=== PATIENT | female | born 1970 | race Caucasian/White ===

== ENCOUNTER 2017-01-19 03:55 | Emergency (ER) | payer OTHER ==
[2017-01-19 04:24] VITALS: BP 124/99; PULSE 81; TEMP 98.2; BMI 30.9
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
[2017-01-19] MEDS ORDERED: VANCOMYCIN 1,000 MG in DEXTROSE 5%-WATER - 250 ML IVPB ONE (05:29)
[2017-01-19] MEDS ORDERED: CLINDAMYCIN 600MG PREMIX IVPB 50 ML IVPB ONE (05:30)
== END 2017-01-19 05:58 | disposition home or self-care (01) ==
LOC: JER 03:55
DX: S60.472A Other superficial bite of right middle finger, initial encounter (principal); Y04.1XXA Assault by human bite, initial encounter; Y93.89 Activity, other specified; Y92.89 Other specified places as the place of occurrence of the external cause; Y07.499 Other family member, perpetrator of maltreatment and neglect
CPT/HCPCS: 99281-25

== ENCOUNTER 2018-08-14 01:08 | Emergency (ER) | payer OTHER ==
[2018-08-14 01:12] VITALS: BMI 28.5
[2018-08-14] MEDS ORDERED: SODIUM CHLORIDE 1,000 ML IV STA (01:43)
[2018-08-14] MEDS ORDERED: morphine CARPU-JECT 4 MG/1 ML DISP.SYRIN IVPUSH ONE (01:43)
[2018-08-14] MEDS ORDERED: ONDANSETRON 4 MG/2 ML VIAL IVPUSH ONE (01:43)
[2018-08-14] MEDS ORDERED: ONDANSETRON 4 MG/2 ML VIAL ONE (02:02)
[2018-08-14] MEDS ORDERED: morphine SULFATE 4 MG/ML VIAL ONE (02:02)
[2018-08-14 02:12] LABS: BASO % 0.7 % (0-2.0); EOS % 2.1 % (0-4.5); HEMATOCRIT 37.6 % (32.4-45.2); HEMOGLOBIN 13.2 GM/dL (10.7-15.3); LYMPH % 20.1 % (8-40); MCH 32.4 pg (25.7-33.7); MCHC 35.1 g/dl (32.0-36.0); MEAN CELL VOLUME 92.4 fl (80-96); MEAN PLT VOLUME 7.9 fl (7.5-11.1); MONO % 8.8 % (3.8-10.2); NEUT % 68.3 % (42.8-82.8); PLATELET COUNT 315 K/MM3 (134-434); RBC 4.06 M/mm3 (3.60-5.2); RDW 13.8 % (11.6-15.6); WHITE BLOOD COUNT 11.7 K/mm3 (4.0-10.0)
[2018-08-14 02:20] LABS: URINE APPEARANCE CLEAR; URINE BILIRUBIN NEGATIVE (<2.0 mg/dL); URINE COLOR YELLOW; URINE GLUCOSE (UA) NEGATIVE (NEGATIVE); URINE KETONE NEGATIVE (NEGATIVE); URINE LEUK ESTERASE NEGATIVE (NEGATIVE); URINE NITRITE NEGATIVE (NEGATIVE); URINE PROTEIN NEGATIVE (NEGATIVE); URINE UROBILINOGEN NEGATIVE mg/dL (0.2-1.0)
[2018-08-14 02:22] LABS: HCG,QUALITATIVE URINE Negative
[2018-08-14 02:42] LABS: EPI CELLS RARE /HPF (FEW); URINE MUCUS MODERATE
--- NOTE | 2018-08-14 02:57 | PDOC ---
*Physical Exam - Vital Signs Last Vital Signs Temp Pulse Resp BP Pulse Ox 98.0 F 102 H 20 132/91 97 08/14/18 01:10 08/14/18 01:10 08/14/18 01:10 08/14/18 01:10 08/14/18 01:10 ED Treatment Course - LABORATORY CBC & Chemistry Diagram: 08/14/18 01:59 08/14/18 01:59 - ADDITIONAL ORDERS Additional order review: Laboratory Results 08/14/18 01:59 Urine Color Yellow Urine Appearance Clear Urine pH 5.0 Ur Specific [place] 1.026 Urine Protein Negative Urine Glucose (UA) Negative Urine Ketones Negative Urine Blood 1+ H Urine Nitrite Negative Urine Bilirubin Negative Urine Urobilinogen Negative Ur Leukocyte Esterase Negative Urine WBC (Auto) 2 Urine RBC (Auto) <1 Ur Epithelial Cells Rare Urine Mucus Moderate Urine HCG, Qual Negative 08/14/18 01:59 RBC 4.06 MCV 92.4 MCHC 35.1 RDW 13.8 MPV 7.9 Neutrophils % 68.3 Lymphocytes % 20.1 Monocytes % 8.8 Eosinophils % 2.1 Basophils % 0.7 - Medications Given in the ED: ED Medications Discontinued Medications Generic Name Dose Route Start Last Admin Trade Name Freq PRN Reason Stop Dose Admin Sodium Chloride 1,000 mls @ 1,000 mls/hr 08/14/18 01:43 08/14/18 02:12 Normal Saline - IV 08/14/18 02:42 1,000 mls/hr ASDIR STA Administration Morphine Sulfate 4 mg 08/14/18 01:43 08/14/18 02:12 Morphine Injection - IVPUSH 08/14/18 01:44 4 mg ONCE ONE Administration Ondansetron HCl 4 mg 08/14/18 01:43 08/14/18 02:13 Zofran Injection IVPUSH 08/14/18 01:44 4 mg ONCE ONE Administration Medical Decision Making - Medical Decision Making 08/14/18 04:39 The patient was seen and evaluated in conjunction with LESLIE Bhakta under my direct supervision, ancillary studies were reviewed. I independently evaluated the patient and I agree with the plan as outlined by LESLIE Bhakta . *DC/Admit/Observation/Transfer - Referrals Referrals: Dana Cummins [Primary Care Provider] - - Patient Instructions - Post Discharge Activity
[2018-08-14 02:59] LABS: ALBUMIN 4.2 g/dl (3.4-5.0); ALK PHOS 65 U/L (45-117); ANION GAP 5 MMOL/L (8-16); BILIRUBIN,TOTAL 0.2 mg/dL (0.2-1); BLOOD UREA NITROGEN 20 mg/dL (7-18); CALCIUM 9.2 mg/dL (8.5-10.1); CHLORIDE 104 mmol/L (98-107); CO2 26 mmol/L (21-32); CREATININE 0.9 mg/dL (0.55-1.3); GLUCOSE,RANDOM 86 mg/dL (74-106); LIPASE 196 U/L (73-393); POTASSIUM 4.2 mmol/L (3.5-5.1); SGOT/AST 18 U/L (15-37); SGPT/ALT 19 U/L (13-61); SODIUM 135 mmol/L (136-145); TOT PROT 8.1 g/dl (6.4-8.2)
[2018-08-14] MEDS ORDERED: morphine CARPU-JECT 2 MG/1 ML DISP.SYRIN IVPUSH ONE (03:19)
[2018-08-14] MEDS ORDERED: MORPHINE SULFATE 2 MG/ML VIAL ONE (03:23)
--- NOTE | 2018-08-14 03:40 | PDOC ---
History of Present Illness - General Chief Complaint: Pain, Acute Stated Complaint: ABDOMINAL PAIN Time Seen by Provider: 08/14/18 01:14 History Source: Patient Exam Limitations: No Limitations - History of Present Illness Initial Comments: 47 y/o F hx of fibromyalgia, bipolar disorder, anxiety, PCOS presents with sharp , crampy RLQ abdominal pain radiating from R lower back x 2 days. Was actually having pain for few weeks, but was mild in nature. However, grew severe in the past 2 days. Associated with nausea and also having watery diarrhea today. Mentions having kidney stones 2 years ago, but this feels different from that type of pain. Denies fever, sob, cp, vomiting, black/bloody stools, dysuria, hematuria, vaginal bleeding, unusual vaginal discharge. Denies prior abdominal surgeries. 08/14/18 03:36 Past History - Past Medical History Allergies/Adverse Reactions: Allergies Allergy/AdvReac Type Severity Reaction Status Date / Time methotrexate Allergy Severe FEVERS Unverified 08/14/18 01:10 Home Medications: Ambulatory Orders Baclofen 10 mg PO TID PRN 01/19/17 Gabapentin [Neurontin] 800 mg PO TID 01/19/17 Lamotrigine [Lamictal -] 200 mg PO DAILY 01/19/17 hydrOXYzine HCL [Atarax -] 25 mg PO TID PRN 01/19/17 Metformin HCl [Metformin HCl ER] 1,000 mg PO BID 08/14/18 COPD: No Kidney Stones: Yes (2015) Other medical history: fibromyalgia - Immunization History Immunization Up to Date: Yes - Suicide/Smoking/Psychosocial Hx Smoking History: Never smoked Have you smoked in the past 12 months: No Number of Cigarettes Smoked Daily: 10 Information on smoking cessation initiated: No Hx Alcohol Use: No Drug/Substance Use Hx: No Review of Systems - Review of Systems Comments:: see hpi 08/14/18 03:39 *Physical Exam - Vital Signs Last Vital Signs Temp Pulse Resp BP Pulse Ox 98.0 F 102 H 20 132/91 97 08/14/18 01:10 08/14/18 01:10 08/14/18 01:10 08/14/18 01:10 08/14/18 01:10 - Physical Exam General Appearance: Yes: Apparent Distress (Patient appears uncomfortable, slightly hunched over in pain) Respiratory/Chest: positive: Lungs Clear, Normal Breath Sounds. negative: Respiratory Distress Cardiovascular: positive: Regular Rhythm, Regular Rate, S1, S2. negative: Murmur Female Pelvic Exam: positive: adnexal tenderness (+R adnexal TTP). negative: CMT, discharge, vaginal bleeding Gastrointestinal/Abdominal: positive: Normal Bowel Sounds. negative: Tender, Distended, Guarding, Rebound, Tenderness, Mass Musculoskeletal: negative: CVA Tenderness Neurologic: positive: Fully Oriented, Alert, Normal Mood/Affect Moderate Sedation - Procedure Monitoring Vital Signs: Procedure Monitoring Vital Signs Temperature 98.0 F 08/14/18 01:10 Pulse Rate 102 H 08/14/18 01:10 Respiratory Rate 20 08/14/18 01:10 Blood Pressure 132/91 08/14/18 01:10 O2 Sat by Pulse Oximetry (%) 97 08/14/18 01:10 ED Treatment Course - LABORATORY CBC & Chemistry Diagram: 08/14/18 01:59 08/14/18 01:59 - ADDITIONAL ORDERS Additional order review: Laboratory Results 08/14/18 08/14/18 08/14/18 01:59 01:59 01:59 Sodium 135 L Potassium 4.2 Chloride 104 Carbon Dioxide 26 Anion Gap 5 L BUN 20 H Creatinine 0.9 Creat Clearance w eGFR > 60 Random Glucose 86 Calcium 9.2 Total Bilirubin 0.2 AST 18 ALT 19 Alkaline Phosphatase 65 Total Protein 8.1 Albumin 4.2 Lipase 196 Beta HCG, Quant < 1.0 Urine Color Yellow Urine Appearance Clear Urine pH 5.0 Ur Specific [place] 1.026 Urine Protein Negative Urine Glucose (UA) Negative Urine Ketones Negative Urine Blood 1+ H Urine Nitrite Negative Urine Bilirubin Negative Urine Urobilinogen Negative Ur Leukocyte Esterase Negative Urine WBC (Auto) 2 Urine RBC (Auto) <1 Ur Epithelial Cells Rare Urine Mucus Moderate Urine HCG, Qual Negative Blood Type O POSITIVE Antibody Screen Negative 08/14/18 01:59 RBC 4.06 MCV 92.4 MCHC 35.1 RDW 13.8 MPV 7.9 Neutrophils % 68.3 Lymphocytes % 20.1 Monocytes % 8.8 Eosinophils % 2.1 Basophils % 0.7 - RADIOLOGY Radiology Studies Ordered: Category Date Time Status ABDOMEN & PELVIS CT W/WO CONTR [CT] Stat CT Scan 08/14/18 02:27 Ordered TRANSVAGINAL ULTRASOUND US [US] Stat Ultrasound 08/14/18 02:28 Ordered - Medications Given in the ED: ED Medications Discontinued Medications Generic Name Dose Route Start Last Admin Trade Name Robin PRN Reason Stop Dose Admin Sodium Chloride 1,000 mls @ 1,000 mls/hr 08/14/18 01:43 08/14/18 02:12 Normal Saline - IV 08/14/18 02:42 1,000 mls/hr ASDIR STA Administration Morphine Sulfate 4 mg 08/14/18 01:43 08/14/18 02:12 Morphine Injection - IVPUSH 08/14/18 01:44 4 mg ONCE ONE Administration Morphine Sulfate 2 mg 08/14/18 03:19 08/14/18 03:25 Morphine Injection - IVPUSH 08/14/18 03:20 2 mg ONCE ONE Administration Ondansetron HCl 4 mg 08/14/18 01:43 08/14/18 02:13 Zofran Injection IVPUSH 08/14/18 01:44 4 mg ONCE ONE Administration Medical Decision Making - Medical Decision Making 47 y/o F hx of fibromyalgia, bipolar disorder, anxiety, PCOS presents with sharp , crampy RLQ/R adnexal pain x 2 days with nausea and diarrhea. UCG negative in labs. Consider kidney stones vs appendicitis vs diverticulitis vs ovarian torsion. Plan: CBC, CMP, UA, IVF, Morphine, Zofran, CT A/P If CT unremarkable, will also consider getting pelvic ultrasound to r/o other pathology such as ovarian torsion 08/14/18 03:41 Patient reassessed and notes improvement in pain from 10/10 to 5/10 (pain can still wax and wane; at times, the pain can go to 8/10; however, overall, much more improved than before) CT abd/pelvis results: 3.8 cm possible cystic/necrotic subserosal fibroid arising from right uterine fundus. Consider further evaluation with ultrasound. Arcuate or bicornuate uterus. 2.5 cm cyst right ovary. 2.8 cm complex left ovarian cyst versus normal ovarian parenchyma. No bowel obstruction, colitis, free fluid or free air. Normal appendix. Unremarkable pancreas, kidneys and gallbladder No acute findings on CT A/P noted Concerned for ovarian torsion given waxing/waning nature of pain Will get transvaginal ultrasound 08/14/18 04:56 Transvaginal ultrasound: No ovarian torsion. Color flow on the right and bilateral arterial and venous waveforms. 2.7 cm right ovarian cyst. No free fluid. 4.3 cm uterine fibroid, consistent with recent CT findings. Endometrial stripe complex 7 mm thick. Ultrasound negative for torsion patient's pain improved Will refer to [facility] for further care Stable for d/c 08/14/18 06:29 *DC/Admit/Observation/Transfer Diagnosis at time of Disposition: RLQ abdominal pain - Discharge Dispostion Disposition: HOME Condition at time of disposition: Improved Decision to Admit order: No - Referrals Referrals: Dana Cummins [Primary Care Provider] - 3 days Johanny Son MD [Staff Physician] - 3 days - Patient Instructions Printed Discharge Instructions: DI for Abdominal Pain-Adult Additional Instructions: Thank you for choosing [facility]. It was a pleasure taking care of you. You were seen here for abdominal pain Your imaging and blood work here were unremarkable. Please be sure to follow-up with your PCP and [facility] for further evaluation. Return to the Emergency Department if your symptoms worsen or persist, you have fever, shortness of breath, chest pain, severe abdominal/pelvic pain, vomiting, black/bloody stools, vaginal bleeding or other concerning symptoms. - Post Discharge Activity
[2018-08-14 06:35] VITALS: BP 106/79; PULSE 84; TEMP 97.9
== END 2018-08-14 06:40 | disposition home or self-care (01) ==
LOC: JER 01:08
PROC: 3E033NZ Introduction of Analgesics, Hypnotics, Sedatives into Peripheral Vein, Percutaneous Approach (ICD-10-PCS; principal; 2018-08-14)
PROC: 3E033GC Introduction of Other Therapeutic Substance into Peripheral Vein, Percutaneous Approach (ICD-10-PCS; 2018-08-14)
PROC: 3E0337Z Introduction of Electrolytic and Water Balance Substance into Peripheral Vein, Percutaneous Approach (ICD-10-PCS; 2018-08-14)
DX: R10.31 Right lower quadrant pain (principal)
CPT/HCPCS: 36415; 74177-TC; 76830-TC; 80053; 81003; 81015; 83690; 84702; 84703; 85025; 86850; 86900; 86901; 96361; 96374; 96375; 96376; 99283-25; J7030